=== PATIENT | male | born 1960 | race Caucasian/White ===

== ENCOUNTER 2025-02-27 12:08 | Outpatient (CLI) | payer MEDICARE, MEDICAID ==
[~2025-02-27 12:08] MED LIST: CYAN100087 PO; INSU100V15 SQ; METF500T PO; NIAC250C26 PO; VALS40TA2 PO
--- NOTE | 2025-02-27 12:54 | RADIOLOGY REPORT ---
CLINICAL INDICATION: RIGHT FOOT PAIN TECHNIQUE: 2 radiographic views of the right foot were obtained. Comparison: None FINDINGS/IMPRESSION: There is no evidence of acute fracture or dislocation. The visualized joint space is well maintained. The alignment is anatomical. There is no radiopaque foreign body.
== END 2025-02-27 23:59 | disposition home or self-care (01) ==
LOC: RAD 12:08
PROVIDERS: ATTEND Family Medicine
DX: M79.671 Pain in right foot (principal)
CPT/HCPCS: 73620